=== PATIENT | female | born 1985 | race Caucasian/White ===

== ENCOUNTER 2022-06-03 18:14 | Outpatient (CLI) | payer SELFPAY ==
[2022-06-03 23:37] LABS: Chlamydia DNA Amplified* NOT DETECTED (No Detected); GC DNA Amplified* NOT DETECTED (No Detected)
== END 2022-06-03 18:15 | disposition home or self-care (01) ==
PROVIDERS: PCP Obstetrics & Gynecology; Visit Provider Registered Nurse
DX: N89.8 Other specified noninflammatory disorders of vagina (principal)
CPT/HCPCS: 87086; 87491; 87591